=== PATIENT | female | born 1990 | race Caucasian/White ===

== ENCOUNTER 2017-02-13 05:02 | Emergency (ER) | payer OTHER ==
[2017-02-13 05:23] VITALS: BP 127/82; PULSE 93; TEMP 97.7; BMI 25.9
--- NOTE | 2017-02-13 06:18 | PDOC ---
History of Present Illness - General Chief Complaint: Foreign Body (FB) Stated Complaint: EYE PROBLEM Time Seen by Provider: 02/13/17 05:27 History Source: Patient Exam Limitations: No Limitations - History of Present Illness Initial Comments: 02/13/17 06:13 26yo Female patient presents to ED c/o left eye redness and feeling nauseous with upper respiratory symptoms (cough, congestion). Patient states she feels she may be and would to be tested as well. Patient denies any other complaints at this time. However, patient reports drinking lots of beer last night and taking "Karla." Past History - Travel Traveled outside of the country in the last 30 days: No Close contact w/someone who was outside of country & ill: No - Past Medical History Allergies/Adverse Reactions: Allergies Allergy/AdvReac Type Severity Reaction Status Date / Time No Known Allergies Allergy Verified 02/13/17 05:49 Home Medications: Ambulatory Orders Albuterol 0.083% Nebulizer Azeb [Ventolin 0.083% Nebulizer Soln -] 1 neb NEB Q4H 11/24/15 Salmeterol/Fluticasone [Advair 100Mcg/50Mcg -] 1 inh PO BID 11/28/15 Nitrofurantoin Monohyd/M-Cryst [Macrobid -] 100 mg PO BID #14 capsule 02/13/17 Asthma: Yes - Immunization History Immunization Up to Date: Yes - Psycho/Social/Smoking Cessation Hx Anxiety: No Suicidal Ideation: No Smoking Status: No Smoking History: Current every day smoker Have you smoked in the past 12 months: No Number of Cigarettes Smoked Daily: 0 Information on smoking cessation initiated: No Hx Alcohol Use: Yes (social) Drug/Substance Use Hx: No Substance Use Type: None Review of Systems - Review of Systems Able to Perform ROS?: Yes Is the patient limited Italian proficient: No Constitutional: No: Chills, Fever HEENTM: Yes: Eye Pain, Blurred Vision, Tearing. No: Double Vision, Cataracts, Ear Pain, Ear Discharge, Nose Congestion, Throat Pain, Throat Swelling, Mouth Pain Respiratory: Yes: Cough. No: Shortness of Breath, Wheezing, Productive cough Cardiac (ROS): No: Chest Pain, Palpitations, Syncope, Chest Tightness ABD/GI: Yes: Nausea, Vomiting. No: Constipated, Diarrhea, Poor Appetite, Poor Fluid Intake All Other Systems: Reviewed and Negative *Physical Exam - Vital Signs Last Vital Signs Temp Pulse Resp BP Pulse Ox 97.7 F 93 H 18 127/82 95 02/13/17 05:21 02/13/17 05:21 02/13/17 05:21 02/13/17 05:21 02/13/17 05:21 - Physical Exam General Appearance: Yes: Nourished, Appropriately Dressed. No: Apparent Distress, Mild Distress, Moderate Distress, Severe Distress HEENT: positive: EOMI, JHONNY, Normal ENT Inspection, Normal Voice, Symmetrical, TMs Normal, Pharyngeal Erythema, Other (Injected conjunctiva with moderate erythema to sclera.). negative: Tonsillar Exudate, Tonsillar Erythema, Nasal Congestion, Rhinorrhea, Sinus Tenderness, TM Bulging, TM Dull, TM Erythema Neck: positive: Trachea midline, Supple. negative: Decreased range of motion, Stridor, Lymphadenopathy (R), Lymphadenopathy (L) Respiratory/Chest: positive: Lungs Clear, Normal Breath Sounds. negative: Respiratory Distress, Accessory Muscle Use, Labored Respiration, Rapid RR Cardiovascular: positive: Regular Rhythm, Regular Rate. 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 NML intact, Fully Oriented, Alert, Normal Mood/ Affect, Normal Response, Motor Strength 5/5 *DC/Admit/Observation/Transfer Diagnosis at time of Disposition: UTI (urinary tract infection) Qualifiers: Urinary tract infection type: site unspecified Hematuria presence: without hematuria Qualified Code(s): N39.0 - Urinary tract infection, site not specified Qualifiers: Weeks of gestation: less than 8 weeks Qualified Code(s): Z3A.01 - Less than 8 weeks gestation of Conjunctivitis Qualifiers: Conjunctivitis type: other mucopurulent Laterality: bilateral Qualified Code(s) : H10.023 - Other mucopurulent conjunctivitis, bilateral - Discharge Dispostion Disposition: HOME Condition at time of disposition: Stable Admit: No - Prescriptions Prescriptions: Nitrofurantoin Monohyd/M-Cryst [Macrobid -] 100 mg PO BID #14 capsule - Patient Instructions Printed Discharge Instructions: DI for Urinary Tract Infection (UTI), DI for Conjunctivitis Additional Instructions: FOLLOW UP WITH YOUR PRIMARY CARE PROVIDER. TAKE MEDICATIONS PRESCRIBED. ADMINISTER EYE DROPS FOLLOWS: 2 DROPS TO BOTH EYES EVERY 4 HOURS WHILE AWAKE X 3 DAYS, THEN 1 DROP TO BOTH EYES EVERY 4 HOURS WHILE AWAKE. FOLLOW UP WITH YOUR NURSE OB OR [facility] FOR TREATMENT. Print Language: CITIZEN OF [place]
[2017-02-13 06:24] LABS: URINE APPEARANCE SLCLOUDY; URINE BILIRUBIN NEGATIVE (NEGATIVE); URINE BLOOD NEGATIVE (NEGATIVE); URINE COLOR LTYELLOW; URINE GLUCOSE (UA) NEGATIVE (NEGATIVE); URINE KETONE NEGATIVE (NEGATIVE); URINE NITRITE NEGATIVE (NEGATIVE); URINE PROTEIN NEGATIVE (NEGATIVE); URINE UROBILINOGEN NEGATIVE E.U./dl (0.2-1.0)
[2017-02-13 06:26] LABS: URINE LEUK ESTERASE 3+ (NEGATIVE)
[2017-02-13 06:30] LABS: URINE BACTERIA FEW /hpf (NONE SEEN); URINE MUCUS RARE; URINE RBC 4 /hpf (0-3); URINE WBC 18 /hpf (3-5)
[2017-02-13] MEDS ORDERED: CIPROFLOXACIN 0.3% EYE DROPS 5 ML BOTTLE OU ONE (06:47)
[2017-02-13] MEDS ORDERED: CIPROFLOXACIN HCL 0.3% OPHTH 2.5ML BOTTLE ONE (06:49)
[2017-02-13] MEDS ORDERED: NITROFURANTOIN MACROCRYSTAL 50 MG CAPSULE (FP) ONE (06:49)
[2017-02-13] MEDS ORDERED: NITROFURANTOIN MACROCRYSTAL 50 MG CAPSULE (FP) PO SCH (07:00)
== END 2017-02-13 07:01 | disposition home or self-care (01) ==
LOC: JER 05:02
DX: O26.891 Other specified pregnancy related conditions, first trimester (principal); Z3A.01 Less than 8 weeks gestation of pregnancy; N39.0 Urinary tract infection, site not specified; H10.023 Other mucopurulent conjunctivitis, bilateral; F17.210 Nicotine dependence, cigarettes, uncomplicated; J45.909 Unspecified asthma, uncomplicated
CPT/HCPCS: 36415; 81003; 81015; 84703; 87491; 87591; 99284-25

== ENCOUNTER 2018-06-26 13:21 | Emergency (ER) | payer OTHER ==
[2018-06-26 13:34] VITALS: BP 137/90; PULSE 95; TEMP 98.4; BMI 27.3
[2018-06-26] MEDS ORDERED: IBUPROFEN 600 MG TABLET (FP) PO ONE (13:58)
--- NOTE | 2018-06-26 13:58 | PDOC ---
History of Present Illness - General Chief Complaint: Vaginal Sxs Stated Complaint: STD TESTING Time Seen by Provider: 06/26/18 13:41 History Source: Patient Exam Limitations: No Limitations - History of Present Illness Travel History: No Initial Comments: 06/26/18 13:57 28 yr female with c/o urinary burning once two days ago after sexual intercourse. Pt states she has no discharge, has "uncomfortable feeling in her lower vaginal area" and that her male partner has similair symptoms. Pt asking to be tested for STD. 06/26/18 14:32 Quality: reports: mild Past History - Past Medical History Allergies/Adverse Reactions: Allergies Allergy/AdvReac Type Severity Reaction Status Date / Time No Known Allergies Allergy Verified 06/26/18 13:32 Home Medications: Ambulatory Orders NK [No Known Home Medication] 06/26/18 Asthma: Yes COPD: No - Reproductive History Therapeutic (s) & number: Yes - Immunization History Immunization Up to Date: Yes - Suicide/Smoking/Psychosocial Hx Smoking Status: No Smoking History: Current every day smoker Have you smoked in the past 12 months: No Number of Cigarettes Smoked Daily: 8 Information on smoking cessation initiated: No 'Breaking Loose' booklet given: 02/10/18 Hx Alcohol Use: Yes (social) Drug/Substance Use Hx: No Substance Use Type: None Review of Systems - Review of Systems Able to Perform ROS?: Yes Is the patient limited B[place]an proficient: No Constitutional: No: Symptoms Reported HEENTM: No: Symptoms Reported Respiratory: No: Symptoms reported Cardiac (ROS): No: Symptoms Reported ABD/GI: No: Symptoms Reported : No: Discharge, Pain, Urgency Musculoskeletal: No: Symptoms Reported *Physical Exam - Vital Signs Last Vital Signs Temp Pulse Resp BP Pulse Ox 98.4 F 95 H 18 137/90 98 06/26/18 13:32 06/26/18 13:32 06/26/18 13:32 06/26/18 13:32 06/26/18 13:32 - Physical Exam General Appearance: Yes: Nourished, Appropriately Dressed HEENT: positive: EOMI, JHONNY, Normal ENT Inspection, TMs Normal, Pharynx Normal Neck: positive: Supple Female Pelvic Exam: positive: normal external exam Gastrointestinal/Abdominal: positive: Normal Bowel Sounds, Soft. negative: Tender Musculoskeletal: positive: Normal Inspection Extremity: positive: Normal Capillary Refill, Normal Inspection, Normal Range of Motion Integumentary: positive: Normal Color, Dry, Warm Neurologic: positive: Fully Oriented, Alert, Normal Mood/Affect, Normal Response , Motor Strength /5 Medical Decision Making - Medical Decision Making 06/26/18 14:27 cc: burning with urination x1 episode 2 days ago after sex , none today no vaginal discharge no abd pain neg nvd has some mild left flank pain but resolved after eating in the exam room pt admits to drinking alcohol recently , binging on alcohol. history of chlamydia in the past 06/26/18 14:30 pt refused to stay for HIV test, so she refused any blood drawer I have discussed we will send the urine for Gc chlamydia and notify pt if positive, there is no indication to treat at this time as pt is not having any symptoms. 06/26/18 14:33 *DC/Admit/Observation/Transfer Diagnosis at time of Disposition: Pelvic pain - Discharge Dispostion Disposition: HOME Condition at time of disposition: Good - Referrals - Patient Instructions Additional Instructions: please drink at least 2 liters of water a day refrain from drinking alcohol in excess follow with your bioinformatics developer for follow up we will call you if the urine cultures are positive for STD infection take ibuprofen as directed for pain any worsening pain return to the ER follow with department of health for HIV testing as discussed - Post Discharge Activity
[2018-06-26 14:32] LABS: URINE APPEARANCE SLCLOUDY; URINE COLOR AMBER; URINE GLUCOSE (UA) NEGATIVE (NEGATIVE); URINE KETONE NEGATIVE (NEGATIVE); URINE LEUK ESTERASE TRACE (NEGATIVE); URINE NITRITE NEGATIVE (NEGATIVE)
[2018-06-26 14:36] LABS: URINE PROTEIN 1+ (NEGATIVE)
[2018-06-26 14:37] LABS: EPI CELLS FEW /HPF (FEW); URINE MUCUS MANY
[2018-06-26] MEDS ORDERED: IBUPROFEN 400 MG TABLET (FP) PO ONE (14:45)
== END 2018-06-26 15:01 | disposition home or self-care (01) ==
LOC: JERFT 13:21
DX: R10.2 Pelvic and perineal pain (principal); F17.210 Nicotine dependence, cigarettes, uncomplicated; J45.909 Unspecified asthma, uncomplicated
CPT/HCPCS: 36415; 81003; 81015; 84703; 87491; 87591; 99281-25

== ENCOUNTER 2018-12-07 05:08 | Emergency (ER) | payer OTHER ==
[2018-12-07] MEDS ORDERED: ALBUTEROL SO4 2.5/IPRATROPIUM 0.5 INH SOL 3 ML VIAL.NEB. NEB ONE ×2 (05:34→07:14)
[2018-12-07] MEDS ORDERED: DEXAMETHASONE SOD PHOSPHATE 10 MG/1 ML VIAL ONE (05:34)
[2018-12-07 06:08] VITALS: BMI 29.6
--- NOTE | 2018-12-07 06:53 | PDOC ---
History of Present Illness - General Chief Complaint: Shortness of Breath Stated Complaint: DIFFICULTY BREATHING Time Seen by Provider: 12/07/18 06:43 History Source: Patient Exam Limitations: No Limitations - History of Present Illness Initial Comments: 12/07/18 06:54 This is a 28 yo F smoker with PMH of asthma, who presents due to sob abd wheezing that started last night. Patient was out drinking and forgot her inhaler at her friends house. when she came home she experienced an asthma attack, which included symptoms of wheezing, dyspnea and anxiety. She states her asthma is exacerbated by cold weather. In addition, she recently got over a "cold": cough productive of yellow flem, now gone. last asthma exacerbation was 2 mo ago, occurring once a year on average. Patient received a dose of decadron and a duoneb treatment on arrival and currently feels well, almost at baseline. She denies wheezing, sob, cp, h/a, dizziness, n/v, abd pain, d/c, f/c. She did not have a flu shot this season. 12/07/18 07:15 12/07/18 07:28 Past History - Past Medical History Allergies/Adverse Reactions: Allergies Allergy/AdvReac Type Severity Reaction Status Date / Time No Known Allergies Allergy Verified 12/07/18 06:09 Home Medications: Ambulatory Orders Albuterol Sulfate Inhaler - [Ventolin Hfa Inhaler -] 1 - 2 inh PO QID #1 inhaler 06/26/18 Asthma: Yes COPD: No - Reproductive History Therapeutic (s) & number: Yes - Immunization History Immunization Up to Date: Yes - Suicide/Smoking/Psychosocial Hx Smoking Status: No Smoking History: Never smoked Have you smoked in the past 12 months: No Number of Cigarettes Smoked Daily: 8 Information on smoking cessation initiated: No 'Breaking Loose' booklet given: 02/10/18 Hx Alcohol Use: No Drug/Substance Use Hx: No Substance Use Type: None Review of Systems - Review of Systems Able to Perform ROS?: Yes Is the patient limited [place] Korean proficient: No Constitutional: No: Chills, Fever, Night Sweats, Weakness HEENTM: No: Ear Pain, Nose Congestion, Throat Pain Respiratory: No: Cough, Orthopnea, Shortness of Breath, Wheezing Cardiac (ROS): No: Chest Pain, Irregular Heart Rate, Lightheadedness, Palpitations, Syncope, Chest Tightness ABD/GI: No: Constipated, Diarrhea, Nausea, Vomiting, Abdominal cramping : No: Dysuria Neurological: No: Headache *Physical Exam - Vital Signs Last Vital Signs Temp Pulse Resp BP Pulse Ox 98.4 F 84 17 124/69 100 12/07/18 05:08 12/07/18 05:08 12/07/18 05:08 12/07/18 05:08 12/07/18 06:26 - Physical Exam General Appearance: Yes: Nourished, Appropriately Dressed. No: Apparent Distress HEENT: positive: EOMI, JHONNY, Normal Voice, Symmetrical. negative: Scleral Icterus (R), Scleral Icterus (L), Muffled/Hoarse voice Neck: positive: Trachea midline, Supple. negative: Tender Respiratory/Chest: positive: Lungs Clear, Normal Breath Sounds. negative: Respiratory Distress Cardiovascular: positive: Regular Rate, S1, S2. negative: JVD, Murmur Gastrointestinal/Abdominal: positive: Normal Bowel Sounds, Flat, Soft. 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 there is no evidence of underlying uri at this time. Ordering one more duoneb treatment. Patients mild asthma exacerbation has resolved; is safe to go home to continue using her asthma inhaler as needed. 12/07/18 07:23 12/07/18 07:29 12/07/18 07:30 *DC/Admit/Observation/Transfer Diagnosis at time of Disposition: Asthma exacerbation - Discharge Dispostion Disposition: HOME Condition at time of disposition: Good Decision to Admit order: No - Referrals Referrals: Titus Kwon MD [Primary Care Provider] - - Patient Instructions Additional Instructions: You were in the ED due to a mild asthma exacerbation. you will be given a small portable Albuterol inhaler to take home and use until you can retrieve your original inhaler from your friend. Please be advised that smoking leads to more frequent and severe asthma exacerbations. We advise you to quit as soon as possible. Please follow up with your primary physician withing a week. Please return to ED if severe symptoms recur. - Post Discharge Activity Forms/Work/School Notes: Back to Work
[2018-12-07] MEDS ORDERED: ALBUTEROL SO4 8 GM HFA INHALER IH ONE (07:43)
--- NOTE | 2018-12-07 07:44 | PDOC ---
Attending Attestation - Resident Resident Name: Rebecca Loja - HPI HPI: 12/07/18 08:34 Pt presents to the ED complaining of wheezing and shortness of breath consistent with prior episodes of asthma. Patient did not have inhaler at home. Symptoms resolved in the ED after nebs and steroids by EMS. Denies other complaints. No prior intubations. - Physicial Exam PE: 12/07/18 08:35 Pt is alert and oriented x 3 and in no acute distress. Speaking in complete sentences. Lungs are clear to auscultation b/l. - Medical Decision Making 12/07/18 08:37 Pt presents to the ED complaining of wheezing and shortness of breath consistent with prior asthma exacerbations. Improved after nebs and steroids. Pt is unable to obtain albuterol MDI with current insurance coverage. Will give MDI in the ED and discharge home.
[2018-12-07] MEDS ORDERED: ALBUTEROL SO4 0.083% IH SOL 2.5 MG/3 ML VIAL.NEB. NEB ONE (07:53)
[2018-12-07 10:13] VITALS: BP 129/62; PULSE 77; TEMP 98.2
== END 2018-12-07 10:14 | disposition home or self-care (01) ==
LOC: JER 05:08
PROC: 3E0F7GC Introduction of Other Therapeutic Substance into Respiratory Tract, Via Natural or Artificial Opening (ICD-10-PCS; principal; 2018-12-07)
PROC: 3E0F7GC Introduction of Other Therapeutic Substance into Respiratory Tract, Via Natural or Artificial Opening (ICD-10-PCS; 2018-12-07)
DX: J45.901 Unspecified asthma with (acute) exacerbation (principal)
CPT/HCPCS: 99282-25

== ENCOUNTER 2020-09-01 09:56 | Emergency (ER) | payer OTHER ==
[2020-09-01 10:01] VITALS: BP 144/93; PULSE 94; TEMP 97.4; BMI 36.1
--- OUTSIDE RECORDS SUMMARY | 2020-09-01 10:15 | XMS ---
:1990 Author Organization [facility] Care Team Providers Name Role Phone ROSA ELENA CARMONA MD Unavailable Unavailable ED STAFF PHYSICIAN Unavailable Unavailable [facility] Unavailable Unavailable ED STAFF PHYSICIAN Unavailable Unavailable ALBERTO, CASAC/MSC Unavailable Unavailable ED STAFF PHYSICIAN Unavailable Unavailable ED STAFF PHYSICIAN Unavailable Unavailable ZUNASSIGNED Unavailable Unavailable KERZ Unavailable Unavailable Re-disclosure Warning The records that you are about to access may contain information from federally- assisted alcohol or drug abuse programs. If such information is present, then the following federally mandated warning applies: This information has been disclosed to you from records protected by federal confidentiality rules (42 CFR part 2). The federal rules prohibit you from making any further disclosure of this information unless further disclosure is expressly permitted by the written consent of the person to whom it pertains or as otherwise permitted by 42 CFR part 2. A general authorization for the release of medical or other information is NOT sufficient for this purpose. The Federal rules restrict any use of the information to criminally investigate or prosecute any alcohol or drug abuse patient.The records that you are about to access may contain highly sensitive health information, the redisclosure of which is protected by Article 27-F of the [facility] Public Health law. If you continue you may haveaccess to information: Regarding HIV / AIDS; Provided by facilities licensed or operated by the [facility] Office of Mental Health; or Provided by the [facility] Office for People With Developmental Disabilities. If such information is present, then the following [facility] mandated warning applies: This information has been disclosed to you from confidential records which are protected by state law. State law prohibits you from making any further disclosure of this information without the specific written consent of the person to whom it pertains, or as otherwise permitted by law. Any unauthorized further disclosure in violation of state law may result in a fine or detention sentence or both. A general authorization for the release of medical or other information is NOT sufficient authorization for further disclosure. Encounters Encounter Providers Location Date Indications Data Source(s ) Emergency Attender: ED STAFF H 08/31/2020 [facility] PHYSICIANAttender: 11:49:00 AM [facility] STAFF ED STAFF EDT - PHYSICIANAdmitter: ED 08/31/2020 STAFF 02:15:00 PM PHYSICIANReferrer: EDT ZUNASSIGNED Patient discharged. Outpatient Attender: DILLON9 RUPESH 08/25/2020 04:01:47 PM [facility] ([facility] EDT [facility]) Patient admitted. Emergency Attender: HANNAH ED STAFF H 07/22/2020 10:55:00 AM [facility] PHYSICIANAttender: DENZEL BROWN EDT - 07/22/2020 [facility] STAFF PHYSICIANAttender: STAFF 02:49:00 PM EDT ED STAFF PHYSICIANAdmitter: HANNAH ED STAFF PHYSICIAN Patient discharged. Outpatient Attender: ROSA ELENA HUANG 07/08/2020 01:41:00 PM [facility]: [facility] Outpatient Attender: ROSA ELENA HUANG 07/01/2020 12:37:00 PM [facility] 07/01/2020 [facility] 01:39:00 PM EDT Patient discharged. Outpatient Attender: DILLON9 HHXIMENA 06/21/2020 11:30:24 AM [facility] ([facility] EDT [facility]) Patient admitted. Outpatient Attender: ROSA ELENA HUANG 05/05/2020 09:29:00 AM [facility] EDT 05/05/2020 [facility] 04:33:00 PM EDT Patient discharged. Outpatient Attender: DILLON9 RUPESH 03/31/2020 09:18:32 AM [facility] ([facility] EDT [facility]) Patient admitted. Outpatient Attender: CNR9 [facility] 02/08/2020 06:23:33 AM [facility] ([facility] EDT [facility]) Patient admitted. Outpatient Attender: CNR9 [facility] 12/13/2019 04:19:23 PM [facility] ([facility]) Patient admitted. Emergency Attender: HANNAH ED STAFF H 12/11/2019 02:18:00 PM [facility] PHYSICIANAttender: STAFF ED EST - 12/11/2019 [facility] STAFF PHYSICIANAdmitter: HANNAH 04:30:00 PM EST ED STAFF PHYSICIAN Patient discharged. Outpatient Attender: CNR9 [facility] 12/04/2019 01:12:31 PM [facility] ([facility]) Patient admitted. Emergency Attender: HANNAH ED STAFF H 11/17/2019 09:21:00 AM [facility] PHYSICIANAttender: STAFF ED EST - 11/17/2019 [facility] STAFF PHYSICIANAdmitter: HANNAH 03:51:00 PM EST ED STAFF PHYSICIANReferrer: STAFF ED STAFF PHYSICIAN Patient discharged. Outpatient 07/31/2019 08:59:03 AM EDT [facility] ([facility]) Patient admitted. Outpatient [facility] 07/26/2019 12:00:00 AM eCW3 ([place] [id number] EDT - 07/26/2019 12:00:00 [facility] Care) AM EDT Emergency H 07/22/2019 12:53:00 PM [facility] EDT - 07/22/2019 02:34:00 Center PM EDT Patient discharged. Outpatient [facility] 07/11/2019 12:00:00 AM eCW3 ([place] [id number] EDT - 07/11/2019 12:00:00 [facility] Care) AM EDT Medications Medication Brand Start Product Dose Route Administrative Pharmacy atus Indications Reaction Description Data Name Date Form Instructions Instructions Source(s) 09/18/ ORAL active NETSMART 2018 (Mental 04:00: Health 00 AM [facility] EDT n [facility]) 09/18/ ORAL active NETSMART 2019 (Mental 04:00: Health 00 AM Associatio EDT n of [facility]hi) 120 ACTUAT Floven 1.0 suspend Flovent HFA eCW3 Fluticasone t HFA 2019 {puff ed 110 MCG/ACT ([place] propionate 110 12:00: } [place] 0.11 MCG/AC 00 AM Health MG/ACTUAT T EDT Care) Metered Dose Inhaler [Flovent] Flovent HFA 110 MCG/ACT 120 ACTUAT Floven 1.0 active Flovent HFA eCW3 Fluticasone t HFA 2019 {puff 110 MCG/ACT ([place] propionate 110 12:00: } [place] 0.11 MCG/AC 00 AM Health MG/ACTUAT T EDT Care) Metered Dose Inhaler [Flovent] Flovent HFA 110 MCG/ACT Insurance Providers Payer name Policy type Policy ID Covered Covered green party's Policy P tristan / Coverage green party ID relationship to Shepherd Inf ormation type shepherd SIENNA [id number] SP [id number] 200 HEALTH NON CAP SI[place] W [id number] 01 [id number] SELF PAY 0000 Self 0000 MEDICAID OP [id number] Self [id number] [facility] SIENNA [id number] Self [id number] CARE SELF PAY [id number] Self [id number] MEDICAID OP [id number] Self [id number] [facility] SIENNA [id number] Self [id number] CARE SELF PAY 0000 Self 0000 MEDICAID OP [id number] Self [id number] MEDICAID OP [id number] Self [id number] [facility] SIENNA [id number] Self [id number] CARE SELF PAY 00 Self 00 MEDICAID OP [id number] Self [id number] [facility] SIENNA [id number] Self [id number] CARE Problems, Conditions, and Diagnoses Code Display Name Description Problem Type Effective Data Dates Source(s) F41.8 Depression with Depression with Problem 11/05/2019 eCW3 ([place] anxiety anxiety 12:00:00 AM [facility] EST [facility]) F17.210 Nicotine NICOTINE Diagnosis 07/22/2020 [facility] dependence, DEPENDENCE, 10:55:00 AM Medical cigarettes, CIGARETTES, EDT Center uncomplicated UNCOMPLICATED R05 Cough COUGH Diagnosis 07/22/2020 [place] 10:55:00 AM Medical EDT Center J45.909 Unspecified UNSPECIFIED Diagnosis 07/22/2020 [place] asthma, ASTHMA, 10:55:00 AM Medical uncomplicated UNCOMPLICATED EDT Center Y99.9 Unspecified UNSPECIFIED Diagnosis 12/11/2019 [place] external cause EXTERNAL CAUSE 02:18:00 PM Medic al status STATUS EST Center Y92.[address] Diagnosis 12/11/2019 [facility] or not applicable OR NOT APPLICABLE 02:18:00 PM Medical EST Center Y93.9 Activity, ACTIVITY, Diagnosis 12/11/2019 [facility] unspecified UNSPECIFIED 02:18:00 PM Medical EST Center X50.1XXA Overexertion from OVEREXERTION FROM Diagnosis 12/11/2019 [facility] prolonged static PROLONGED STATIC 02:18:00 PM M edical or awkward OR AWKWARD EST Center postures, initial POSTURES, INIT encounter S93.601A Unspecified sprain UNSPECIFIED SPRAIN Diagnosis 0 [facility] of right foot, OF RIGHT FOOT, 02:18:00 PM Medic al initial encounter INITIAL ENCOUNTER EST Center Z53.21 Procedure and PROC/TRTMT NOT CRD Diagnosis 11/17/2019 [facility] treatment not OUT D/T PT LV BEF 09:21:00 AM Med ical carried out due to SEEN BY [facility] EST Center patient leaving PROV prior to being seen by health care provider Z72.0 Tobacco use TOBACCO USE Diagnosis 07/22/2019 [facility] 12:53:00 PM Medical EDT Center F19.10 Other psychoactive OTHER PSYCHOACTIVE Diagnosis 9 [facility] substance abuse, SUBSTANCE ABUSE, 12:53:00 PM M edical uncomplicated UNCOMPLICATED EDT Center F41.9 Anxiety disorder, ANXIETY DISORDER, Diagnosis 07/22/2019 [facility] unspecified UNSPECIFIED 12:53:00 PM Medical EDT Center Surgeries/Procedures Procedure Description Date Indications Data Source(s) Injection, ketorolac 07/11/2019 eCW3 ([place] tromethamine, per 15 12:00:00 AM EDT [facility]) mg Results ID Date Data Source [id number] 08/31/2020 12:35:00 PM EDT [facility] 400 Name Value Range Interpretation Description Data Sup porting Code Source(s) Document(s ) Streptococcus NEGATIVE <item><conten pyogenes Ag [facility] [place] [Presence] in styleCode="[facility] Unspecified ld">Rapid Center specimen by Strep A Immunoassay </content>
<table><tbo dy><tr><td>Sp ecimen Number:</td>< td>[id number]< /td></tr><tr> <td>Sample Collection Date/Time: </td><td>08/21 12:35 PM</td></tr>< tr><td>Specim en Source:</td>< td>THROAT</td ></tr><tr><td >Rapid Strep A:</td><td>PO SITIVE </td></tr></t body></table> </item> ID Date Data Source [id number] 08/28/2020 12:00:00 AM EDT [facility] Name Value Range Interpretation Code Description Data Samaria rce(s) Supporting Document(s ) nCoV [facility] RNA XXX WILIAN+probe- Imp This lab was ordered by [employer] and reported by [employer] ID Date Data Source [id number] 04/03/2020 12:00:00 AM EDT [facility] Name Value Range Interpretation Code Description Data Samaria rce(s) Supporting Document(s ) nCoV [facility] RNA XXX WILIAN+probe- Imp This lab was ordered by [employer] and reported by [employer] Procedure Social History Code Duration Value Status Description Data Source(s ) Smoking 08/31/2020 Daily Smoker completed Daily Smoker [facility] 11:51:00 AM EDT Medical C enter Smoking 07/22/2020 Daily Smoker completed Daily Smoker [facility] 11:25:00 AM EDT Medical C enter Smoking 07/22/2020 Daily Smoker completed Daily Smoker [facility] 11:15:00 AM EDT Medical C enter Smoking 07/22/2020 Daily Smoker completed Daily Smoker [facility] 11:04:00 AM EDT Medical C enter Smoking 04/04/2020 Current Smoker completed Current Smoker eCW3 ( [place] 12:00:00 AM EDT Health Ca re) Smoking 04/04/2020 Current Smoker completed Current Smoker eCW3 ( [place] 12:00:00 AM EDT Health Ca re) Smoking 02/04/2020 Current Smoker completed Current Smoker eCW3 ( [place] 12:00:00 AM EDT Health Ca re) Smoking 12/11/2019 Daily Smoker completed Daily Smoker [facility] 03:00:00 PM EST Medical C enter Smoking 12/11/2019 Daily Smoker completed Daily Smoker [facility] 03:00:00 PM EST Medical C enter Smoking 12/11/2019 Daily Smoker completed Daily Smoker [facility] 02:28:00 PM EST Medical C enter Smoking 11/17/2019 Daily Smoker completed Daily Smoker [facility] 09:30:00 AM EST Medical C enter Smoking 11/17/2019 Daily Smoker completed Daily Smoker [facility] 09:23:00 AM EST Medical C enter Smoking 07/27/2019 Current Smoker completed Current Smoker eCW3 ( [place] 12:00:00 AM EDT Health Ca re) Smoking 07/22/2019 Daily Smoker completed Daily Smoker [facility] 01:00:00 PM EDT Medical C enter Smoking 07/22/2019 Daily Smoker completed Daily Smoker [facility] 01:00:00 PM EDT Medical C enter Smoking 07/22/2019 Daily Smoker completed Daily Smoker [facility] 12:53:00 PM EDT Medical C enter Vital Signs ID Date Data Source UNK Name Value Range Interpretation Code Description Data Source(s) Body weight 98.608382 kg 98.468265 kg [facility] Body temperature 37.633607 37.587664 [facility] Respiratory rate 18 /min 18 /min [facility] Oxygen saturation 98 % 98 % [facility] by Pulse oximetry Heart rate 98 /min 98 /min [facility] Diastolic blood 93 mm[Hg] 93 mm[Hg] [facility] Systolic blood 148 mm[Hg] 148 mm[Hg] [facility] Body weight 120.547935 120.568496 kg [facility] kg Medical Center Body temperature 36.491831 36.219004 [facility] Respiratory rate 18 /min 18 /min [facility] Oxygen saturation 98 % 98 % [facility] in [facility] by Pulse oximetry Heart rate 83 /min 83 /min [facility] Body height 167.850213 167.097109 cm [facility] Diastolic blood 88 mm[Hg] 88 mm[Hg] [facility] Systolic blood 178 mm[Hg] 178 mm[Hg] [facility] Body mass index 42.6 kg/m2 42.6 kg/m2 [facility] (BMI) [Ratio] Medical [facility] ter Body temperature 36.366185 36.648540 [facility] Respiratory rate 19 /min 19 /min [facility] Oxygen saturation 98 % 98 % [facility] Arterial blood [facility] by Pulse oximetry Heart rate 78 /min 78 /min [facility] Diastolic blood 76 mm[Hg] 76 mm[Hg] [facility] pressure [facility] Systolic blood 123 mm[Hg] 123 mm[Hg] [facility] Body weight 98.134293 kg 98.121671 kg [facility] Body temperature 36.616295 36.458751 [facility] Respiratory rate 18 /min 18 /min [facility] Oxygen saturation 95 % 95 % [facility] Arterial blood [facility] by Pulse oximetry Heart rate 73 /min 73 /min [facility] Body height 165.801128 165.337549 cm [facility] Diastolic blood 84 mm[Hg] 84 mm[Hg] [facility] Systolic blood 145 mm[Hg] 145 mm[Hg] [facility] Body mass index 36.0 kg/m2 36.0 kg/m2 [facility] (BMI) [Ratio] Medical [facility] Body temperature 36.743420 36.746429 [facility] Respiratory rate 18 /min 18 /min [facility] Oxygen saturation 98 % 98 % [facility] Arterial blood [facility] by Pulse oximetry Heart rate 94 /min 94 /min [facility] Diastolic blood 77 mm[Hg] 77 mm[Hg] [facility] Systolic blood 123 mm[Hg] 123 mm[Hg] [facility] Diastolic blood 76 mm[Hg] 76 mm[Hg] eCW3 ([facility]) Systolic blood 127 mm[Hg] 127 mm[Hg] eCW3 ([facility]) Body temperature 98.2 [degF] 98.2 [degF] eCW3 ( [facility]) Body mass index 34.84 kg/m2 34.84 kg/m2 eCW3 ([facility] (BMI) [Ratio] [facility]) Body weight 203 [lb_av] 203 [lb_av] eCW3 ([facility]) Body height 64 [in_i] 64 [in_i] eCW3 ([facility]) Body weight 74.591011 kg 74.330416 kg [facility] Body temperature 36.228843 36.056433 [facility] Respiratory rate 20 /min 20 /min [facility] Oxygen saturation 97 % 97 % [facility] in Arterial blood [facility] by Pulse oximetry Heart rate 82 /min 82 /min [facility] Body height 157.184460 157.044428 cm [facility] Diastolic blood 88 mm[Hg] 88 mm[Hg] [facility] pressure Medical Center Systolic blood 152 mm[Hg] 152 mm[Hg] [facility] Body mass index 30.1 kg/m2 30.1 kg/m2 [facility] (BMI) [Ratio] Medical [facility] Diastolic blood 77 mm[Hg] 77 mm[Hg] eCW3 ([facility]) Systolic blood 121 mm[Hg] 121 mm[Hg] eCW3 ([facility]) Body temperature 97.6 [degF] 97.6 [degF] eCW3 ( [facility]) Body mass index 34.33 kg/m2 34.33 kg/m2 eCW3 ([facility] (BMI) [Ratio] [facility]) Body weight 200 [lb_av] 200 [lb_av] eCW3 ([facility]) Body height 64 [in_i] 64 [in_i] eCW3 ([facility]) Patient Treatment Plan of Care Planned Activity Planned Date Details Description Data Source (s) 120 ACTUAT Fluticasone 07/26/2019 12:00:00 eCW3 ([facility] propionate 0.11 AM [facility]) MG/ACTUAT Metered Dose Inhaler [Flovent]
[2020-09-01] MEDS ORDERED: KETOROLAC TROMETHAMINE 30 MG/1 ML VIAL IM ONE (10:31)
[2020-09-01] MEDS ORDERED: DEXAMETHASONE LIQUID 0.5 MG/5 ML PO ONE (10:31)
[2020-09-01] MEDS ORDERED: KETOROLAC TROMETHAMINE 30 MG/1 ML VIAL ONE (10:34)
[2020-09-01] MEDS ORDERED: DEXAMETHASONE SOD PHOSPHATE 10 MG/1 ML VIAL ONE (10:34)
--- NOTE | 2020-09-01 10:40 | PDOC ---
History of Present Illness - General Chief Complaint: Sore Throat Stated Complaint: STREP THROAT Time Seen by Provider: 09/01/20 10:10 History Source: Patient Exam Limitations: No Limitations - History of Present Illness Initial Comments: 09/01/20 10:40 HISTORY OF PRESENT ILLNESS: 30-year-old woman with history of asthma presents emergency department for evaluation of worsening sore throat over the past 3 days. Patient states she was seen at another hospital yesterday was found to have streptococcal pharyngitis for which she received a Bicillin injection. Patient is concerned that symptoms with that improved after receiving treatment yesterday. No recent travel or sick contacts. PAST MEDICAL HISTORY: See HPI SURGICAL HISTORY: Denies ALLERGIES: No known drug allergies REVIEW OF SYSTEMS General/Constitutional: Denies fever or chills. Denies weakness, weight change. HEENT: See HPI Cardiovascular: Denies chest pain or shortness of breath. Respiratory: Denies cough, wheezing, or hemoptysis. Gastrointestinal: Denies nausea, vomiting, diarrhea or constipation. Denies rectal bleeding. Genitourinary: Denies dysuria, frequency, or change in urination. Musculoskeletal: Denies joint or muscle swelling or pain. Denies neck or back pain. Skin and breasts: Denies rash or easy bruising. Neurologic: Denies headache, vertigo, loss of consciousness, or loss of sensation. Psychiatric: Denies depression or anxiety. Endocrine: Denies increased thirst. Denies abnormal weight change. Hematologic/Lymphatic: Denies anemia, easy bleeding, or history of blood clots. Allergic/Immunologic: Denies hives or skin allergy. Denies latex allergy. PHYSICAL EXAM General Appearance: Well-appearing, appropriately dressed. No apparent distress, no intoxication. HEENT: EOMI, PERRLA, normal ENT inspection, normal voice, TMs normal. No conjunctival pallor. No photophobia, scleral icterus. Tonsils erythematous with tonsillar swelling present left greater than right. Uvula is midline. Tonsillar exudate is present worse on the left greater than right. No vocal changes noted. Neck: Supple. Trachea midline. No tenderness, rigidity, carotid bruit, stridor, lymphadenopathy, or thyromegaly. Respiratory/Chest: Lungs CTAB. No shortness of breath, chest tenderness, respiratory distress, accessory muscle use. No crackles, rales, rhonchi, stridor, wheezing, dullness Cardiovascular: RRR. S1, S2. No JVD, murmur, bradycardia, tachycardia. Past History - Medical History Allergies/Adverse Reactions: Allergies Allergy/AdvReac Type Severity Reaction Status Date / Time No Known Allergies Allergy Verified 09/01/20 09:57 Home Medications: Ambulatory Orders Albuterol Sulfate Inhaler - [Ventolin Hfa Inhaler -] 1 - 2 inh PO QID #1 inhaler 06/26/18 Clindamycin [Cleocin -] 300 mg PO TID #21 capsule 09/01/20 Asthma: Yes COPD: No - Reproductive History Is Patient Now?: No Therapeutic (s) & number: Yes - Immunization History Immunization Up to Date: Yes - Psycho-Social/Smoking History Smoking Status: No Smoking History: Never smoked Have you smoked in the past 12 months: No Number of Cigarettes Smoked Daily: 8 'Breaking Loose' booklet given: 02/10/18 - Substance Abuse Hx (Audit-C & DAST Scrn) How often the patient has a drink containing alcohol: Never Score: In Men: 4 or > Positive; In Women: 3 or > Positive: 0 Screen Result (Pos requires Nsg. Audit-10AR): Negative In the last yr the pt used illegal drug/Rx for NonMed reason: No Score: Yes response is considered Positive: 0 Screen Result (Positive result requires Nsg. DAST-10): Negative *Physical Exam - Vital Signs Last Vital Signs Temp Pulse Resp BP Pulse Ox 97.4 F L 94 H 18 144/93 100 09/01/20 09:57 09/01/20 09:57 09/01/20 09:57 09/01/20 09:57 09/01/20 09:57 Medical Decision Making - Medical Decision Making 09/01/20 10:41 A/P: 30-year-old female with sore throat for 2 days Physical exam is consistent with streptococcal infection. We will give Decadron 10 mg orally now and Toradol 30 mg IM now. Prescription sent to [place] [facility] for clindamycin and patient has been given ENT referral for continued evaluation as needed. I discussed the physical exam findings, ancillary test results and final diagnoses with the patient. I answered all of the patient's questions. The patient was satisfied with the care received and felt comfortable with the discharge plan and treatment plan. The patient will call their primary care physician within 24 hours to arrange follow-up and will return to the Emergency Department with any new, persistent or worsening symptoms. Portions of this note have been documented using voice recognition software. As a result, errors may occur in the credit officer process. Effort has been made to correct all grammatical and credit officer error, but some may have been missed which may produce sporadic inaccurate credit officer or nonsensical phrases. Discharge - Discharge Information Problems reviewed: Yes Clinical Impression/Diagnosis: Pharyngitis Qualifiers: Pharyngitis/tonsillitis etiology: unspecified etiology Qualified Code(s): J02.9 - Acute pharyngitis, unspecified Condition: Stable Disposition: HOME - Admission No - Additional Discharge Information Prescriptions: Clindamycin [Cleocin -] 300 mg PO TID #21 capsule - Follow up/Referral Referrals: Raven Frank MD [Primary Care Provider] - Akash Quintero MD [Staff Physician] - Usman Balbuena MD [Staff Physician] - - Patient Discharge Instructions Additional Instructions: Take clindamycin as prescribed. Salt water garggles. Throw away your toothbrush in 3 days and start using a new toothbrush. No sharing of drinks, utensils or toothbrushes. Take Motrin as directed by home day care provider's instructions. You have been given a referral for ENT specialist. Call to schedule an appointment for reevaluation if symptoms unimproved. Return to ED for worsening fevers, worsening sore throat, chest pain, shortness of breath or any other concerns. - Post Discharge Activity
== END 2020-09-01 10:55 | disposition home or self-care (01) ==
LOC: JERFT 09:56
PROC: 3E0233Z Introduction of Anti-inflammatory into Muscle, Percutaneous Approach (ICD-10-PCS; principal; 2020-09-01)
DX: J02.9 Acute pharyngitis, unspecified (principal)
CPT/HCPCS: 87070; 87880; 99284-25

== ENCOUNTER 2020-11-17 14:07 | Emergency (ER) | payer OTHER ==
[2020-11-17 14:22] VITALS: BP 141/61; PULSE 87; TEMP 98; BMI 36.8
[2020-11-17] MEDS ORDERED: predniSONE 20 MG TABLET (UD) PO ONE (14:31)
[2020-11-17] MEDS ORDERED: ALBUTEROL SO4 2.5/IPRATROPIUM 0.5 INH SOL 3 ML VIAL.NEB. NEB SCH (14:45)
[2020-11-17] MEDS ORDERED: predniSONE 20 MG TABLET (UD) ONE (14:45)
== END 2020-11-17 15:44 | disposition home or self-care (01) ==
LOC: FER 14:07
PROC: 3E0F7GC Introduction of Other Therapeutic Substance into Respiratory Tract, Via Natural or Artificial Opening (ICD-10-PCS; principal; 2020-11-17)
DX: J45.901 Unspecified asthma with (acute) exacerbation (principal); Z03.818 Encounter for observation for suspected exposure to other biological agents ruled out
CPT/HCPCS: 99283-25; C9803; U0003

== ENCOUNTER 2021-03-10 08:52 | Emergency (ER) | payer OTHER ==
[2021-03-10 09:04] VITALS: BP 137/89; PULSE 93; TEMP 98.1; BMI 37.9
[2021-03-10] MEDS ORDERED: predniSONE 20 MG TABLET (UD) PO ONE (09:16)
[2021-03-10] MEDS ORDERED: ALBUTEROL SO4 2.5/IPRATROPIUM 0.5 INH SOL 3 ML VIAL.NEB. NEB ONE (09:24)
[2021-03-10] MEDS ORDERED: predniSONE 20 MG TABLET (UD) ONE (09:24)
[2021-03-10] MEDS ORDERED: ALBUTEROL SO4 2.5/IPRATROPIUM 0.5 INH SOL 3 ML VIAL.NEB. NEB SCH (09:30)
== END 2021-03-10 10:15 | disposition home or self-care (01) ==
LOC: FER 08:52
PROC: 3E0F7GC Introduction of Other Therapeutic Substance into Respiratory Tract, Via Natural or Artificial Opening (ICD-10-PCS; principal; 2021-03-10)
DX: J45.31 Mild persistent asthma with (acute) exacerbation (principal); J30.2 Other seasonal allergic rhinitis
CPT/HCPCS: 99284-25

== ENCOUNTER 2022-10-26 16:06 | Emergency (ER) | payer OTHER ==
[2022-10-26 16:16] VITALS: BP 133/84; PULSE 82; RESP 17; TEMP 97.8; BMI 38.9
[2022-10-26] MEDS ORDERED: DEXAMETHASONE LIQUID 0.5 MG/5 ML PO ONE (16:37)
[2022-10-26] MEDS ORDERED: DEXAMETHASONE SOD PHOSPHATE 10 MG/1 ML VIAL ONE (16:39)
== END 2022-10-26 16:43 | disposition home or self-care (01) ==
LOC: JERFT 16:06
DX: J45.909 Unspecified asthma, uncomplicated (principal)
CPT/HCPCS: 0241U-QW; 99283-25

== ENCOUNTER 2023-10-15 15:08 | Emergency (ER) | payer OTHER ==
[2023-10-15] MEDS ORDERED: predniSONE 20 MG TABLET (UD) PO ONE (15:20)
[2023-10-15 15:29] VITALS: BP 146/100; PULSE 73; RESP 18; TEMP 99; BMI 33.9
[2023-10-15] MEDS ORDERED: predniSONE 20 MG TABLET (UD) ONE (15:30)
== END 2023-10-15 15:44 | disposition home or self-care (01) ==
LOC: FER 15:08
DX: R05.9 Cough, unspecified (principal); B34.9 Viral infection, unspecified; Z20.822 Contact with and (suspected) exposure to COVID-19
CPT/HCPCS: 0241U-QW; 99283-25

== ENCOUNTER 2024-03-30 16:43 | Emergency (ER) | payer OTHER ==
[2024-03-30 17:46] VITALS: BP 133/80; PULSE 76; RESP 18; TEMP 98.5; BMI 33.9
== END 2024-03-30 17:51 | disposition home or self-care (01) ==
LOC: FER 16:43
DX: R09.81 Nasal congestion (principal); R05.9 Cough, unspecified; R43.0 Anosmia; Z20.822 Contact with and (suspected) exposure to COVID-19
CPT/HCPCS: 0241U-QW; 99283-25

== ENCOUNTER 2024-10-21 09:00 | Emergency (ER) | payer OTHER ==
[2024-10-21 09:09] VITALS: BP 124/81; PULSE 64; RESP 18; TEMP 97.8; BMI 27.9
[2024-10-21] MEDS ORDERED: LIDOCAINE HCL 1%, 10 MG/ML (20ML VIAL) ONE (10:29)
[2024-10-21 12:54] LABS: CALCIUM OXALATE CRYSTALS FEW /hpf (NONE SEEN); URIC ACID CRYSTALS MANY /hpf (NONE SEEN)
[2024-10-21 16:34] LABS: HIV INTERPRETATION NEGATIVE (NEGATIVE)
== END 2024-10-21 11:06 | disposition home or self-care (01) ==
LOC: FER 09:00
DX: B37.31 Acute candidiasis of vulva and vagina (principal)
CPT/HCPCS: 36415; 81003; 81015; 84703; 86780; 86803; 87086; 87389; 87491; 87591; 99284-25

== ENCOUNTER 2025-03-15 22:16 | Emergency (ER) | payer OTHER ==
[2025-03-15 22:31] VITALS: BP 124/82; PULSE 63; BMI 30.7
[2025-03-15] MEDS: SODIUM CHLORIDE 1,000 ML IV STA (23:34)
[2025-03-15 23:36] LABS: HEMATOCRIT 36.5 % (34.1-44.9); HEMOGLOBIN 11.9 g/dL (11.2-15.7); MCHC 32.6 g/dl (32.2-35.5); MEAN CELL VOLUME 85.9 fl (79.4-94.8); PLATELET COUNT 345 x10^3/uL (182-369); RDW 13.8 % (12.1-16.8)
[2025-03-16] MEDS ORDERED: ONDANSETRON 4 MG/2 ML VIAL ONE
[2025-03-16] MEDS: ONDANSETRON 4 MG/2 ML VIAL IVPUSH ONE (00:03)
[2025-03-16 00:08] LABS: CHLORIDE 106 mmol/L (98-107); POTASSIUM 3.7 mmol/L (3.5-5.1); SODIUM 140 mmol/L (136-145)
[2025-03-16 00:10] LABS: CALCIUM 9.5 mg/dL (8.5-10.1)
[2025-03-16 00:11] LABS: ALBUMIN 3.4 g/dl (3.4-5.0); ANION GAP 7 mmol/L (4-13); BLOOD UREA NITROGEN 12.2 mg/dL (7-18); CO2 27 mmol/L (21-32); GLUCOSE,RANDOM 90 mg/dL (74-106)
[2025-03-16 00:14] LABS: CREATININE 0.5 mg/dL (0.55-1.3); SGOT/AST 15 U/L (15-37); SGPT/ALT 19 U/L (13-61)
[2025-03-16 00:16] LABS: BILIRUBIN,TOTAL 0.4 mg/dL (0.2-1); TOT PROT 6.5 g/dl (6.4-8.2)
[2025-03-16 00:17] LABS: ALK PHOS 61 U/L (45-117)
[2025-03-16 01:00] LABS: HCV DIAGNOSTIC IN-HOUSE W/RFLX NON-REACTIVE (NONREACTIVE)
[2025-03-16 01:01] LABS: HIV INTERPRETATION NEGATIVE (NEGATIVE)
== END 2025-03-16 01:09 | disposition home or self-care (01) ==
LOC: JER 22:16
PROC: 3E033GC Introduction of Other Therapeutic Substance into Peripheral Vein, Percutaneous Approach (ICD-10-PCS; principal; 2025-03-15)
PROC: 3E0337Z Introduction of Electrolytic and Water Balance Substance into Peripheral Vein, Percutaneous Approach (ICD-10-PCS; 2025-03-15)
DX: R11.2 Nausea with vomiting, unspecified (principal); R10.13 Epigastric pain; E86.0 Dehydration; R10.11 Right upper quadrant pain; F10.90 Alcohol use, unspecified, uncomplicated
CPT/HCPCS: 36415; 76705-TC; 80053; 84702; 85027; 86803; 87389; 99285-25

== ENCOUNTER 2025-03-18 10:08 | Emergency (ER) | payer OTHER ==
[2025-03-18 10:24] VITALS: BP 124/81; PULSE 68; RESP 18; TEMP 98.2; BMI 30.7
== END 2025-03-18 13:46 | disposition home or self-care (01) ==
LOC: JER 10:08
DX: R10.84 Generalized abdominal pain (principal); R11.2 Nausea with vomiting, unspecified
CPT/HCPCS: 99283-25; 99284-25